=== PATIENT | male | born 1945 | race Caucasian/White ===

== ENCOUNTER 2024-07-19 21:17 | Emergency (ER) | payer OTHER, SELFPAY ==
[2024-07-19] VITALS (15 sets, daily range): BP systolic 110–141; BP diastolic 54–89; PULSE 41–65; RESP 18; TEMP 36.7; O2SAT 92–96; BMI 29.1
--- NOTE | 2024-07-19 21:31 | ED_ITS ---
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 He has had need for an EpiPen in the past when he was stung around his eye. He is not experiencing any breathing problems today or swelling of the lips or mucous membranes. Noted that his EpiPen was very much out of date and so instead of using that his gave him 50 mg of Benadryl and sprayed Benadryl on his hand. They called the nurse line because he was still experiencing redness going up his arm to near his elbow. The nurse line told him to come into the ER to be evaluated. Layo denies chest pain shortness of breath difficulty breathing nausea or vomiting. Related Data Home Medications ?Medication ?Instructions ?Recorded ?Confirmed amlodipine 5 mg tablet 5 mg PO DAILY 07/19/24 07/19/24 atorvastatin 40 mg tablet 40 mg PO DAILY 07/19/24 07/19/24 glipizide 2.5 mg tablet, extended 2.5 mg PO DAILY 07/19/24 07/19/24 release 24 hr lisinopril 20 1 tab PO DAILY 07/19/24 07/19/24 mg-hydrochlorothiazide 25 mg tablet Previous Rx's ?Medication ?Instructions ?Recorded epinephrine 0.3 mg/0.3 mL 0.3 mg (0.3 mL) IM Q5-15M PRN #2 ea 07/19/24 injection, auto-injector (EpiPen 2-Andrés) prednisone 20 mg tablet 20 mg PO DAILY #3 tabs 07/19/24 Allergies Allergy/AdvReac Type Severity Reaction Status Date / Time No Known Drug Allergies Allergy Verified 07/19/24 21:29 Review of Systems Status of ROS: Reports: 6 or more systems reviewed and unremarkable except as noted in History and below Const: Denies: fever Eyes: Denies: change in vision ENMT: Denies: throat pain, difficulty swallowing or nasal congestion Cardio: Denies: chest pain, edema, lightheadedness or shortness of breath with exertion Resp: Denies: shortness of breath or cough GI: Denies: difficulty swallowing Integ/Breast: Reports: itching, redness and skin pain [facility] Social History Smoking Status: Never smoker How often do you have a drink containing alcohol: monthly or less AUDIT-C Alcohol total score: 1 Non-prescribed substance use: denies use Exam Narrative: Exam Narrative: Alert and oriented. No acute distress. Mentating normally speech is normal. Normal mucous membranes. Heart with regular rate and rhythm with occasional additional systole with compensatory pause. and lungs are clear. Abdomen soft. Lower extremities without edema. Examination of his left arm shows prominence of the thenar eminence. There is a small tiny lesion where I do think this being probably occurred. I do scraped this area to ensure removal of the sting her although I did not visualize it. He has an area of edema on the middle volar surface of his forearm. He has a very subtle red streak running up the arm to just past the antecubital fossa. Is able to move his arm without difficulty. Const: Vital Signs, click to edit/add: Vital Signs - 24 hr 07/19/24 21:21 07/19/24 21:33 07/19/24 21:45 Temperature 98.1 F Pulse Rate 43 L 65 Pulse Rate [Right Pulse Oximeter] 52 L Respiratory Rate 18 Blood Pressure Blood Pressure [Ri ght Upper Arm] 141/77 H Pulse Oximetry 95 94 94 Oxygen Delivery Me thod Room Air 07/19/24 21:59 07/19/24 22:00 07/19/24 22:15 Temperature Pulse Rate 62 44 L 41 L Pulse Rate [Right Pulse Oximeter] Respiratory Rate Blood Pressure 131/89 Blood Pressure [Ri ght Upper Arm] Pulse Oximetry 95 95 94 Oxygen Delivery Me thod 07/19/24 22:27 07/19/24 22:28 07/19/24 22:30 Temperature Pulse Rate 50 L 53 L 58 L Pulse Rate [Right Pulse Oximeter] Respiratory Rate Blood Pressure 115/84 Blood Pressure [Ri ght Upper Arm] Pulse Oximetry 94 96 96 Oxygen Delivery Me thod 07/19/24 22:32 07/19/24 22:45 07/19/24 23:00 Temperature Pulse Rate 57 L 49 L 59 L Pulse Rate [Right Pulse Oximeter] Respiratory Rate Blood Pressure 110/54 L Blood Pressure [Ri ght Upper Arm] Pulse Oximetry 96 96 96 Oxygen Delivery Me thod 07/19/24 23:02 07/19/24 23:15 07/19/24 23:30 Temperature Pulse Rate 62 52 L 59 L Pulse Rate [Right Pulse Oximeter] Respiratory Rate Blood Pressure 113/73 Blood Pressure [Ri ght Upper Arm] Pulse Oximetry 95 92 95 Oxygen Delivery Me thod Documenting provider has reviewed patient's vital signs: yes Course Course ED Course: Patient appears to be having a localized reaction to a bee sting that is spreading. No evidence of anaphylaxis at this time. Patient has already received 50 mg of Benadryl. Therefore will place IV and give famotidine 20 mg IV, dexamethasone 10 mg IV and 12.5 mg of IV Benadryl. Reevaluation(s) Reevaluation #1: Nursing staff notes that the patient's heart rate decreased to 30s although patient was asymptomatic to this. EKG by my read shows sinus rhythm at a rate of 78. PVCs noted with compensatory pause. Will continue with cardiac monitoring at this time. Vital Signs Vital signs: Initial Vital Signs Temperature 98.1 F 07/19/24 21:21 Temperature Source Temporal Artery Scan 07/19/24 21:21 Pulse Rate 52 L 07/19/24 21:21 Pulse Rhythm Regular 07/19/24 21:21 Respiratory Rate 18 07/19/24 21:21 Blood Pressure 141/77 H 07/19/24 21:21 Blood Pressure Mean 98 07/19/24 21:21 Blood Pressure Position Supine 07/19/24 21:21 Pulse Oximetry 95 07/19/24 21:21 Oxygen Delivery Method Room Air 07/19/24 21:21 Vital Signs Temperature 98.1 F 07/19/24 21:21 Pulse Rate 52 L 07/19/24 21:21 Respiratory Rate 18 07/19/24 21:21 Blood Pressure 141/77 H 07/19/24 21:21 Pulse Oximetry 95 07/19/24 21:21 Oxygen Delivery Method Room Air 07/19/24 21:21 Temperature 98.1 F 07/19/24 21:21 Pulse Rate 59 L 07/19/24 23:30 Respiratory Rate 18 07/19/24 21:21 Blood Pressure 113/73 07/19/24 23:02 Pulse Oximetry 95 07/19/24 23:30 Oxygen Delivery Method Room Air 07/19/24 21:21 Medications Administered Medications: Discontinued Medications Generic Name Dose Route Start Last Admin Trade Name Lakesha PREdgar Reason Stop Dose Admin Dexamethasone 10 mg 07/19/24 21:40 07/19/24 22:12 Dexamethasone 10 Mg/Ml Inj IVP 07/19/24 21:41 10 mg ONCE ONE Administration Diphenhydramine HCl 12.5 mg 07/19/24 21:40 07/19/24 22:15 Diphenhydramine 50 Mg/Ml Inj IVP 07/19/24 21:41 12.5 mg ONCE ONE Administration Famotidine 20 mg 07/19/24 21:40 07/19/24 22:20 Famotidine 10 Mg/Ml Inj IVP 07/19/24 21:41 20 mg ONCE ONE Administration Medical Decision Making MDM Narrative Medical decision making narrative: 1. Bee sting reaction -patient noted to be much improved after dexamethasone 10 mg, Benadryl 12.5 mg and famotidine 20 mg IV. Will continue the steroid prednisone 20 mg daily starting tomorrow for 3 days. Would also suggest next dose of Benadryl 50 mg to be approximately 4 a.m.. After that I would switch to Zyrtec 10 mg daily at noon for the next 3 days. This will cause less sleepiness. 2. Cardiac irritability-frequently noted are PVCs on the monitor. Patient is a symptomatic to this. Briefly heart rate was down to 38 but again patient asymptomatic. We were unable to find any past history of this in his chart. Patient denies chest pain shortness of breath. He certainly does not look to be having a systemic reaction to the bee sting. We have placed him on a ZIO patch and results will be sent to his primary Dr. Mumtaz Vu of the [facility]. Would also recommend outpatient echocardiogram. Of course for lightheadedness, syncope, chest pain return to the ER for evaluation. EKG does not show any evidence of ST depression or elevation indicating ischemia or injury. Heart rate back 50s to 70s at this time. 3. Disposition -home at this time. Return for worsening symptoms and as needed. Medical Records Medical records reviewed: Yes I reviewed the patient's medical records ECG Data Attestation: I personally reviewed and interpreted this ECG as follows: Prior ECG tracings: not available for review Interpretation: EKG by my read shows sinus rhythm at a rate of 78. Frequent PVCs noted with compensatory pause. I do not note any acute ST or T-wave changes. Discharge Plan Discharge Clinical Impression: Allergic reaction to bee sting, Frequent PVCs Patient Disposition: Home, Self-Care Condition: Improved Additional Instructions: ZIO patch is ordered and will be monitoring your heart rate. This was ordered under Dr. Vu. Results will be sent to him. I would recommend also echocardiogram. This can be ordered by your primary clinic. For the allergic reaction, Benadryl is what has been used and it is a great medication but can cause drowsiness. Take your next dose of Benadryl at approximately 0400 hours. Then switch to Zyrtec 10 mg daily for the next 3 days. Your 1st dose will be around noon. Prednisone 20 mg daily for the next 3 days is a steroid that I sent to the pharmacy. Seek medical attention/return as needed. I did send a prescription for a new EpiPen to your pharmacy. Prescriptions: New epinephrine [EpiPen 2-Andrés] 0.3 mg/0.3 mL auto-injector 0.3 mg IM Q5-15M PRNQty: 2 0RF Rx Instructions: do not exceed 3 doses per episode prednisone 20 mg tablet 20 mg PO DAILY Qty: 3 0RF No Action atorvastatin 40 mg tablet 40 mg PO DAILY amlodipine 5 mg tablet 5 mg PO DAILY glipizide 2.5 mg tablet extended release 24hr 2.5 mg PO DAILY lisinopril-hydrochlorothiazide 20-25 mg tablet 1 tab PO DAILY Follow Up/Referrals: Art Vu MD [Primary Care Provider] - Stand Alone Forms: [employer] Info Instructions
[2024-07-19] MEDS: dexAMETHasone 10 MG/ML inj IVP (22:12)
[2024-07-19] MEDS: diphenhydrAMINE 50 MG/ML inj 12.5 MG IVP (22:15)
[2024-07-19] MEDS: FAMOTIDINE 10 MG/ML inj 20 MG IVP (22:20)
== END 2024-07-19 23:37 | disposition home or self-care (01) ==
PROVIDERS: Emergency Provider Family Medicine; PCP Family Medicine
DX: T63.441A Toxic effect of venom of bees, accidental (unintentional), initial encounter (principal); M79.89 Other specified soft tissue disorders; I49.3 Ventricular premature depolarization
CPT/HCPCS: 93246; 96374; 96375; 99284; J1100; J1200; S0028